=== PATIENT | female | born 1950 | race Caucasian/White ===

== ENCOUNTER 2016-05-11 14:16 | Inpatient (IN) | payer OTHER ==
[~2016-05-11] VITALS: Ht 165.1 cm; Wt 130.2 kg
--- NOTE | ~2016-05-11 | EKG ---
[place] [address] [facility] [address] ELECTROCARDIOGRAM REPORT Name: PARRISCHRISTINE MACIASFAB Cedeno Room #: 448-P ADM IN M.R.#: [id number] Admission: 05/11/16 Attend Phys: Get Peace DO Discharge: Date of : 46 Report #: [id number] THIS REPORT FOR: //name// [facility] ED Test Date: 2016-05-11 Test Time: 14:20:30 Pat Name: MICHAEL ALDRIDGE Department: Room: [facility] Gender: F Geological Manager: Sourav FREIRE : 1950 Requested By: Norma Casas Order Number: [id number] MD: Nathan Parra Measurements Intervals Tiona Rate: 67 P: 35 ND: 178 QRS: -1 QRSD: 96 T: 15 QT: 398 QTc: 420 Interpretive Statements Sinus rhythm Low voltage, precordial leads No previous ECG available for comparison Electronically Signed On 05-12-2016 7:52:57 [employer]ACHINE by Nathan Parra [email or web address] <ELECTRONICALLY SIGNED> By: Nathan Parra MD, [facility] 05/12/16 0752 1420 1420 Nathan Parra MD, FACC /EPI
--- NOTE | ~2016-05-11 | D ---
[facility] [place] [address] DISCHARGE SUMMARY Name: MICHAEL ALDRIDGE Room #: 448-P [facility] IN M.R.#: [id number] Admission: 05/11/16 Attend Phys: Get Peace, Discharge: 05/13/16 Date of : 46 Report #: [id number] THIS REPORT FOR: //name// CC: Mohinder Peace TYPE OF DICTATION: Discharge summary. After [id number] encounter, I did see the patient and examined her on the day of discharge. DISCHARGE DIAGNOSES: 1. Ataxia. 2. Diabetes mellitus. 3. Peripheral neuropathy. 4. Hypertension. 5. Hyperlipidemia. 6. Gastroesophageal reflux disease. 7. Hypothyroidism. DISCHARGE MEDICATIONS: See discharge summary. HOSPITAL COURSE: The patient was admitted to the hospital secondary to ataxia. The patient was consulted with Neurology. Dr. Musa did see the patient and he recommended to do some MRI, but she could not do the MRI as inpatient because of claustrophobia and he could not give her any Valium because of respiratory status. So, the patient did have an echocardiogram, which did show ejection fraction of 55% and grade 1 dysfunction. Also, in her stay in the hospital, she had a CT angiogram and CT head, both came back negative for any acute vascular abnormality in the neck or the head. So, the patient is to do an MRI per Dr. Musa and she is scheduled for outpatient open MRI and she is going to see Dr. Musa within a few days as an outpatient. The patient is stable and she is going home after the MRI as an outpatient. <ELECTRONICALLY SIGNED> By: Park Elias MD 05/14/16 1015 0943 1236 Park Elias MD /nt
--- NOTE | ~2016-05-11 | HC ---
[facility] [place] [address] CONSULTATION Name: MICHAEL ALDRIDGE Room #: 448-P [facility] IN M.R.#: [id number] Admission: 05/11/16 Attend Phys: Get Peace DO Discharge: 05/13/16 Date of : 46 Report #: [id number] THIS REPORT FOR: //name// CC: Mohinder Peace DATE OF SERVICE: 05/12/2016 DATE OF CONSULTATION: 05/12/2016 HISTORY OF PRESENT ILLNESS: This is a 65-year-old female patient, who was evaluated by me because she indicates that she got up yesterday and she was having difficulty with walking. It was mostly with difficulty with coordination. It started spontaneously. She thought it may have been inner ear infection because she had it in the past. When it did not become better, she initially went to urgent care and then came here. Her symptoms are better, but when I made her walk later on, she does have difficulty with tandem walking, which she believes it is new. It is mild difficulty. She takes gabapentin for neuropathy. She had similar symptoms sometime ago and it is not clear why she had those symptoms and it thought it may have been secondary to gabapentin. She does take a significant dose of gabapentin. REVIEW OF SYSTEMS: Positive for diabetes and hypertension. She does not believe she becomes hypoglycemic or hypotensive. She is somewhat better, but symptom were of moderate severity when it came, but still has some finding on examination. REVIEW OF SYSTEMS: Positive for diabetes and hypertension. She later on gave a history for sleep apnea. Otherwise, she is not complaining of any new eye, ENT, cardiac, respiratory, GI, , musculoskeletal, constitutional, dermatological, hematological, psychiatric, throat or allergic symptom associated with present symptomatology. PAST MEDICAL HISTORY: Positive for similar spell from which she became spontaneously better. FAMILY HISTORY: Negative for early age stroke. SOCIAL HISTORY: She does not smoke or drink any alcohol. PHYSICAL EXAMINATION: Indicate that this patient is alert and responsive. She is able to follow simple and complex commands. Her speech, concentration, fund of knowledge and memory is at her baseline. Cranial nerve examination 2-12 is unremarkable. She has an unremarkable strength, sensation and reflexes in all 4 extremities. Reflexes in the lower extremities is present. Her tone is symmetrical. She has no cerebellar sign. There is no papilledema. There is no [facility] [address] [place] [address] CONSULTATION Name: MICHAEL ALDRIDGE Room #: 448-P [facility] IN M.R.#: [id number] Admission: 05/11/16 Attend Phys: Get Peace, Discharge: 05/13/16 Date of : 46 Report #: [id number] carotid bruit. I did make her walk and she is able to tandem walk with mild difficulty. She is obese individual, who does not have any dysmorphic features of eyes, ears and face. Pulses are somewhat difficult to feel, but she has no edema, cyanosis or jaundice. She has no dysmorphic features of eyes, ears and face. Blood pressure is 132/76, respiration is 20, pulse is 74, temperature is 97.8. LABORATORY DATA: Indicate hemoglobin of 15.3 and potassium was 3.4, hemoglobin A1c is 7.4. She did have a CT angiogram of the head and neck and that was unremarkable. CT was also unremarkable. IMPRESSION: It is possible this patient had a transient ischemic attack, but history is not very classical. I think it will be desirable to exclude the possibility of posterior fossa TIA further. Other etiologies which can cause these symptoms includes inner ear infections, anxiety, etc. I discussed all this patient with her and discussed the options with her. RECOMMENDATIONS: 1. I discussed the patient's MRI. She is already scheduled for MRI, but she does not think she can do it without Valium. I discussed Valium with her and its potential side effect. She does have sleep apnea and I told her that she can have multiple side effect from it, but side effect with a small dose of p.o. Valium is low. Initially, I was going to give her 2 mg of p.o. Valium with a repeat x 1 if necessary. But because of the history of sleep apnea, I will just give her 2 mg of p.o. Valium and if she is unable to do the MRI, we will do the MRI as an outpatient in [facility]. She understands all of it and I counseled her heavily for that. She understands the side effects of Valium and want to proceed with this testing. We will schedule it and if the MRI is normal, then I do not think any further neurological workup need to be done except she should workup for vascular risk factor as an outpatient and also check normal things including thyroid function test, etc. Thank you very much for allowing me to share in the management of this patient and we will see if MRI shows any abnormality. <ELECTRONICALLY SIGNED> By: Hever Musa MD 05/21/16 1544 0835 0924 Hever Musa MD /nt
--- NOTE | ~2016-05-11 | 2DMMODE ---
[facility] [place] [place] [address] 2 D/M-MODE ECHOCARDIOGRAM Name: MICHAEL ALDRIDGE Room #: 448-P [facility] IN ..#: [id number] Admission: 05/11/16 Attend Phys: Get Peace, Discharge: Date of : 46 Date of Service: 05/12/16 1532 Report #: [id number] THIS REPORT FOR: //name// Transthoracic Echocardiography Ordering physician: Hever Musa Referring physician: Mohinder Casas Parveen Minister Of Religion: ANA Holder Indications/History: HTN, HLP, DM, TIA, Morbid obesity. BP: 188 / HR: 77bpm Height: 65in Weight: 286.4lb 87 Study data: M-mode, complete 2D, complete spectral Doppler, and color Doppler. Location: Echo laboratory. Routine. Image quality was good. Intravenous contrast (agitated saline) was administered. 2D measurements Normal Normal LVID ED 39.8mm 36-57 IVS ED 12.2mm 6-11 LVID ES 26.1mm 23-40 LVPW ED 12.3mm 6-11 LA volume 18ml/m2 16-28 AoRoot diam 29.8mm 21-37 index ED LVOT diameter 18-23 Findings: Left ventricle: The cavity size was normal. Wall thickness was normal. Systolic function was normal. The estimated ejection fraction was in the range of 55% to 60%. Wall motion was normal. Right ventricle: The cavity size was normal. Systolic function was normal. Right atrium: The atrium was normal in size. Left atrium: The atrium was normal in size. Volume index: 18ml/m2 (S). Aortic valve: Structurally normal valve. Trileaflet. Doppler: There was no stenosis. No regurgitation. [address] [address] 2 D/M-MODE ECHOCARDIOGRAM Name: MICHAEL ALDRIDGE Room #: 448-P ADM IN M.R.#: [id number] Admission: 05/11/16 Attend Phys: Get Peace, Discharge: Date of : 46 Date of Service: 05/12/16 1532 Report #: [id number] Peak velocity: 168.9cm/s (S). Peak gradient: 11.4mm Hg (S). Mitral valve: Structurally normal valve. Doppler: There was no evidence for stenosis. No regurgitation. Peak E-wave velocity: 73.5cm/s. Peak gradient: 2.2mm Hg (D). Peak A-wave velocity: 99.3cm/s. Tricuspid valve: Structurally normal valve. Doppler: There was no evidence for stenosis. Pulmonic valve: Structurally normal valve. Doppler: There was no evidence for stenosis. No regurgitation. Pericardium: There was no pericardial effusion. Aorta: Aortic root: The aortic root was normal in size. Pulmonary artery: Pressure could not be reliably determined due to minimal or absent tricuspid insufficiency jet, but pulmonary hypertension was not suggested. Diastolic function: Doppler parameters are consistent with abnormal left ventricular relaxation (grade 1 diastolic dysfunction). Systemic veins: Inferior vena cava: Not visualized. Conclusions 1. Left ventricle: Systolic function was normal. The estimated ejection fraction was in the range of 55% to 60%. Wall motion was normal. Doppler parameters are consistent with abnormal left ventricular relaxation (grade 1 diastolic dysfunction). 2. Aortic valve: Structurally normal valve. Trileaflet. There was no stenosis. No regurgitation. 3. Mitral valve: Structurally normal valve. No regurgitation. 4. Pericardium, extracardiac: There was no pericardial effusion. <ELECTRONICALLY SIGNED> By: Nathan Parra MD, [facility] 05/12/16 1855 1532 54 Nathan Parra MD, [facility] /percy
[2016-05-11 14:16] VITALS: BP 183/100
[2016-05-11 15:30] LABS: EOSINOPHILS 2.4 % (0.0-3.0); HEMATOCRIT 43.3 % (37.0-47.0); LYMPHOCYTES 27.9 % (24.0-44.0); MCH 26.5 pg (26.0-34.0); MCHC 32.3 % (28.0-37.0); MCV 81.8 fL (80.0-100.0); MONOCYTES 5.2 % (1.0-8.0); PLATELET COUNT 274 thou/uL (150-400); POLYS 63.5 % (36.0-66.0); RDW 16.7 % (10.5-14.5)
[2016-05-11 15:31] LABS: MANUAL DIFF NO
[2016-05-11 15:31] LABS: POC CREATININE 0.9 mg/dL (0.6-1.3); POC HEMOGLOBIN 15.3 gm/dL (12.0-15.0); POC POTASSIUM 3.4 mmol/L (3.5-5.1)
[2016-05-11] MEDS ORDERED: NEURONTIN 300300 M1 PO (17:04)
[2016-05-11] MEDS ORDERED: AZITHROMYCIN 2250 MG PO (17:04)
[2016-05-11] MEDS ORDERED: LEVOTHYROXINE0.05 MG PO (17:04)
[2016-05-11] MEDS ORDERED: TRULICITY1.5 MG/0.5 SQ (17:05)
[2016-05-11] MEDS ORDERED: TRIAMCINOLONE A80 G2 TOP (17:05)
[2016-05-11] MEDS ORDERED: GLUCOPHAGE1000 MG PO (17:05)
[2016-05-11] MEDS ORDERED: HYDROCHLOROTHIA25 M1 PO (17:05)
[2016-05-11] MEDS ORDERED: MOBIC7.5 MG PO (17:05)
[2016-05-11] MEDS ORDERED: INVOKANA100 MG PO (17:05)
[2016-05-11] MEDS ORDERED: EXFORGE 5-3201 EACH PO (17:06)
[2016-05-11] MEDS ORDERED: FLONASE 0.05%50 MCG NASAL (17:06)
[2016-05-11] MEDS ORDERED: PROTONIX40 M4 PO (17:06)
[2016-05-11] MEDS ORDERED: GLUCOTROL5 MG PO (17:06)
[2016-05-11] MEDS ORDERED: VENTOLIN HFA 1818 GM INH (17:06)
[2016-05-11] MEDS ORDERED: ZOCOR20 MG PO (17:06)
[2016-05-11] MEDS ORDERED: PHILLIPS' COLO1 EACH PO (17:07)
[2016-05-11] MEDS ORDERED: REFRESH TEARS15 ML OP (17:07)
[2016-05-11] MEDS ORDERED: SLOW-MAG64 M1 PO (17:07)
[2016-05-11] MEDS ORDERED: ASPIR 8181 MG PO (17:07)
[2016-05-11 19:04] VITALS: BP 119/67
[2016-05-11 20:00] VITALS: BP 132/73
[2016-05-12 00:15] VITALS: BP 151/56
[2016-05-12 04:08] LABS: GLYCOHEMOGLOBIN (HGB A1C) 7.4 % (4.8-5.6)
[2016-05-12 05:30] VITALS: BP 132/76
[2016-05-12 08:00] VITALS: BP 164/77
[2016-05-12 09:27] LABS: CALCIUM 10.1 mg/dL (8.5-10.1); CREATININE 1.1 mg/dL (0.6-1.3)
[2016-05-12 12:00] VITALS: BP 188/87
[2016-05-12 16:00] VITALS: BP 182/83
[2016-05-12 20:35] VITALS: BP 165/82
[2016-05-13 05:30] VITALS: BP 130/69
[2016-05-13 08:55] VITALS: BP 168/74
[2016-05-13 10:44] VITALS: BP 168/74
== END 2016-05-13 11:54 | disposition home or self-care (01) | DRG 69 ==
LOC: ER 14:16 → EROBS 17:59 → 4S 17:59
PROVIDERS: Emergency Medicine; Internal Medicine Geriatric Medicine
DX: G45.9 Transient cerebral ischemic attack, unspecified (principal); I10 Essential (primary) hypertension; Z96.653 Presence of artificial knee joint, bilateral; R27.0 Ataxia, unspecified; E11.42 Type 2 diabetes mellitus with diabetic polyneuropathy; E78.5 Hyperlipidemia, unspecified; F41.9 Anxiety disorder, unspecified; H83.09 Labyrinthitis, unspecified ear; K21.9 Gastro-esophageal reflux disease without esophagitis; E03.9 Hypothyroidism, unspecified; Z90.49 Acquired absence of other specified parts of digestive tract; Z88.8 Allergy status to other drugs, medicaments and biological substances; Z79.82 Long term (current) use of aspirin; G62.9 Polyneuropathy, unspecified
CPT/HCPCS: 10195